=== PATIENT | female | born 1985 | race Two or more races ===

== ENCOUNTER → 2025-06-28 | Outpatient (CLI) | payer BC ==
[2025-06-28 11:33] LABS: ESTRADIOL 26.2 PG/ML; LUTEINIZING HORMONE 11.2 mIU/ML; PROGESTERONE 0.87 NG/ML
== END ==
LOC: M RAD 10:34
PROVIDERS: ATTEND Obstetrics & Gynecology Reproductive Endocrinology
DX: Z31.83 Encounter for assisted reproductive fertility procedure cycle (principal); N83.292 Other ovarian cyst, left side